=== PATIENT | male | born 1995 | race Caucasian/White ===

== ENCOUNTER 2018-07-05 08:02 | Inpatient (IN) | payer MEDICAID ==
[~2018-07-05] VITALS: Ht 160 cm; Wt 103.0 kg
[2018-07-05] MEDS ORDERED: MORPHINE SULFATE 4 MG/ML CPJ (NOT FOR IM USE) IV STA (08:26)
[2018-07-05] MEDS ORDERED: ONDANSETRON HCL 4MG/2ML INJ IV STA (08:26)
[2018-07-05] MEDS ORDERED: SODIUM CHLORIDE 0.9% 1,000 ML IV ONE (08:26)
[2018-07-05] MEDS ORDERED: KETOROLAC 30MG/ML VIAL IV STA (08:26)
[2018-07-05] MEDS ORDERED: METHYLPREDNISOLONE SOD SUCC 125 MG/2 ML VIAL IV STA (08:26)
[2018-07-05] MEDS ORDERED: LEVOFLOXACIN 750MG PREMIX 150 ML IV ONE (08:30)
[2018-07-05] MEDS ORDERED: IPRATROPIUM/ALBUTEROL 0.5-3(2.5)MG/3ML NEB HHN ONE (08:30)
[2018-07-05 09:31] LABS: BASOPHILS % 0.7 % (0.0-2.0); EOSINOPHILS % 3.4 % (0.0-5.0); HEMATOCRIT. 38.2 % (42.0-52.0); HEMOGLOBIN. 13.1 g/dL (14.0-18.0); LYMPHOCYTES % 22.3 % (20.0-50.0); MEAN CORPUSCULAR HEMOGLOBIN 29.8 pg (28.0-32.0); MEAN CORPUSCULAR VOLUME 86.6 fL (80.0-94.0); MEAN PLATELET VOLUME 10.2 fl (7.4-10.4); MONOCYTES % 14.3 % (2.0-8.0); NEUTROPHILS % 59.3 % (40.0-76.0); RED BLOOD CELL COUNT 4.41 mill/uL (4.7-6.1); RED CELL DISTRIBUTION WIDTH 15.7 % (11.6-14.6)
[2018-07-05 09:34] LABS: CHLORIDE 112 mEq/L (98-107)
[2018-07-05 09:38] LABS: INR 1.2; PARTIAL THROMBOPLASTIN TIME 33.1 sec (23.4-31.0); PROTHROMBIN TIME 12.4 sec (9.1-11.1)
[2018-07-05 09:45] LABS: PLATELET 39 x1000/uL (130-400)
[2018-07-05] MEDS ORDERED: LORAZEPAM 2MG/ML CPJ IV ONE (10:15)
[2018-07-05 10:30] LABS: PLATELET ESTIMATE MARKEDL
[2018-07-05 11:22] LABS: CLARITY URINE CLEAR (CLEAR); COLOR URINE DARK YELLOW (YELLOW); KETONES URINE NEGATIVE (NEGATIVE); LEUKOCYTE ESTERASE URINE NEGATIVE (NEGATIVE); NITRITE URINE NEGATIVE (NEGATIVE); OCCULT BLOOD URINE NEGATIVE (NEGATIVE); PH URINE 5.5 (4.5-8.0); PROTEIN URINE NEGATIVE (NEGATIVE); SPECIFIC GRAVITY URINE 1.024 (1.005-1.030)
[2018-07-05] MEDS ORDERED: DESM10SP4 BOTHNSTRLS (12:20)
[2018-07-05] MEDS ORDERED: LEVO50TA8 PO (12:20)
[2018-07-05 12:25] VITALS: BP 96/61
[2018-07-05] MEDS ORDERED: MAGNESIUM/ALUMINUM HYDROXIDE/SIMETHICONE 30ML UDC PO PRN (12:30)
[2018-07-05] MEDS ORDERED: DOCUSATE SODIUM 100MG CAPSULE PO PRN (12:30)
[2018-07-05] MEDS ORDERED: CLONIDINE 0.1MG TABLET PO PRN (12:30)
[2018-07-05] MEDS ORDERED: ONDANSETRON HCL 4MG/2ML INJ IV PRN (12:30)
[2018-07-05] MEDS ORDERED: GUAIFENESIN 200MG/10ML SUGAR FREE UDC PO PRN (12:30)
[2018-07-05] MEDS ORDERED: ACETAMINOPHEN 325MG TABLET PO PRN (12:30)
[2018-07-05] MEDS ORDERED: IPRATROPIUM/ALBUTEROL 0.5-3(2.5)MG/3ML NEB INH PRN (12:30)
[2018-07-05] MEDS ORDERED: ENOXAPARIN 40MG/0.4ML SYR SUBCUT SCH (12:30)
[2018-07-05] MEDS ORDERED: ZOLPIDEM TARTRATE 5MG TABLET PO PRN (12:30)
[2018-07-05] MEDS ORDERED: NITROGLYCERIN 0.4MG TABLET SL SL PRN (12:30)
[2018-07-05] MEDS ORDERED: DEXTROSE 50% WATER 50ML SYRINGE IV PRN (13:15)
[2018-07-05] MEDS: GUAIFENESIN/DM 600MG/30MG ER TAB 12HR PO SCH ×2 (13:31→22:31)
[2018-07-05] MEDS: KETOROLAC 15MG/ML VIAL IV PRN (13:31)
[2018-07-05] MEDS: METHYLPREDNISOLONE SOD SUCC 125 MG/2 ML VIAL IV SCH ×2 (13:31→22:34)
[2018-07-05] MEDS ORDERED: AZITHROMYCIN 500 MG in DEXT 5% WATER 250 ML IV SCH (14:00)
[2018-07-05] MEDS: CEFTRIAXONE 1,000 MG in DEXTROSE 5% WATER 50 ML IV SCH (14:56)
[2018-07-05] MEDS: INSULIN LISPRO 100 UNITS/ML SUBCUT SCH ×2 (17:26→22:33)
[2018-07-05] MEDS: BLOOD SUGAR DIAGNOSTIC STRIP TEST SCH ×2 (17:26→21:00)
[2018-07-05 17:45] LABS: CREATINE KINASE 76 IU/L (39-308)
[2018-07-05 17:46] LABS: CREATINE KINASE MB FRACTION < 1.0 ng/mL (0.5-3.6)
[2018-07-05 20:00] VITALS: BP 110/60
[2018-07-05] MEDS: IPRATROPIUM/ALBUTEROL 0.5-3(2.5)MG/3ML NEB HHN SCH (20:59)
[2018-07-05] MEDS: FAMOTIDINE 20MG TABLET PO SCH (22:31)
[2018-07-05] MEDS: DESMOPRESSIN TOP SCH (23:04)
[2018-07-05 23:18] LABS: PHENCYCLIDINE URINE SCREEN NEGATIVE (NEGATIVE)
[2018-07-05 23:19] LABS: *AMPHETAMINES SCREEN URINE NEGATIVE (NEGATIVE); *BARBITURATES SCREEN URINE NEGATIVE (NEGATIVE); *BENZODIAZEPINES SCREEN URINE NEGATIVE (NEGATIVE); *COCAINE SCREEN URINE NEGATIVE (NEGATIVE); CANNABINOID URINE SCREEN NEGATIVE (NEGATIVE); METHADONE URINE SCREEN NEGATIVE (NEGATIVE); OPIATES URINE SCREEN PRESUMTIVE POSITIVE (NEGATIVE)
[2018-07-06] VITALS: BP 99/52
[2018-07-06 00:35] LABS: CREATINE KINASE 71 IU/L (39-308)
[2018-07-06 00:36] LABS: CREATINE KINASE MB FRACTION < 1.0 ng/mL (0.5-3.6)
[2018-07-06] MEDS: IPRATROPIUM/ALBUTEROL 0.5-3(2.5)MG/3ML NEB HHN SCH ×4 (00:52→11:37)
[2018-07-06 04:00] VITALS: BP 99/52
[2018-07-06] MEDS ORDERED: LEVOTHYROXINE SODIUM 50MCG TABLET PO SCH (06:45)
[2018-07-06] MEDS: BLOOD SUGAR DIAGNOSTIC STRIP TEST SCH ×2 (06:45→12:24)
[2018-07-06] MEDS: METHYLPREDNISOLONE SOD SUCC 125 MG/2 ML VIAL IV SCH (06:54)
[2018-07-06] MEDS: INSULIN LISPRO 100 UNITS/ML SUBCUT SCH ×2 (06:59→12:16)
[2018-07-06 08:00] VITALS: BP 94/41
[2018-07-06] MEDS ORDERED: CEFTRIAXONE 1 G PREMIX 50 ML IV SCH (09:00)
[2018-07-06] MEDS: DESMOPRESSIN TOP SCH (09:03)
[2018-07-06] MEDS: FAMOTIDINE 20MG TABLET PO SCH (09:03)
[2018-07-06] MEDS: GUAIFENESIN/DM 600MG/30MG ER TAB 12HR PO SCH (09:03)
[2018-07-06] MEDS: KETOROLAC 15MG/ML VIAL IV PRN (09:44)
[2018-07-06 12:00] VITALS: BP 108/50
[2018-07-06] MEDS: CEFTRIAXONE 1,000 MG in DEXTROSE 5% WATER 50 ML IV SCH (12:16)
[2018-07-06 13:07] VITALS: BP 108/50
[2018-07-07] MEDS ORDERED: AZITHROMYCIN 500 MG TABLET PO SCH (09:00)
== END 2018-07-06 15:30 | disposition home or self-care (01) | DRG 133 ==
LOC: ER 08:11 → 5WST 10:16 → EDBEDREQ 10:19 → ENRESERV 10:25
PROVIDERS: ADMIT Internal Medicine; ATTEND Internal Medicine
DX: J96.00 Acute respiratory failure, unspecified whether with hypoxia or hypercapnia (principal); J18.9 Pneumonia, unspecified organism; D69.6 Thrombocytopenia, unspecified; E44.1 Mild protein-calorie malnutrition; E83.51 Hypocalcemia; Z68.41 Body mass index [BMI] 40.0-44.9, adult; E03.9 Hypothyroidism, unspecified; E11.9 Type 2 diabetes mellitus without complications; E66.9 Obesity, unspecified; E80.4 Gilbert syndrome; F41.9 Anxiety disorder, unspecified; F32.9 Major depressive disorder, single episode, unspecified; J45.909 Unspecified asthma, uncomplicated; Z85.841 Personal history of malignant neoplasm of brain
CPT/HCPCS: 36415; 71045; 80305; 82550; 82553; 82962; 83036; 83605; 83880; 84484; 85379; 93005; 93970; 94640; 99285; J0456; J0696; J1815; J1885; J1956; J2060; J2270; J2405; J2930; J7030; J7040; J7060; J7620

== ENCOUNTER 2018-11-23 20:02 | Inpatient (IN) | payer MEDICAID ==
[~2018-11-23] VITALS: Ht 160 cm; Wt 108.7 kg
[~2018-11-23 20:02] MED LIST: DESM10SP4 BOTHNSTRLS; LEVO50TA8 PO
[2018-11-23 23:01] LABS: BASOPHILS % 0.9 % (0.0-2.0); EOSINOPHILS % 4.3 % (0.0-5.0); HEMATOCRIT. 34.4 % (42.0-52.0); HEMOGLOBIN. 11.7 g/dL (14.0-18.0); LYMPHOCYTES % 33.3 % (20.0-50.0); MEAN CORPUSCULAR HEMOGLOBIN 29.4 pg (28.0-32.0); MEAN CORPUSCULAR VOLUME 86.3 fL (80.0-94.0); MONOCYTES % 8.3 % (2.0-8.0); NEUTROPHILS % 53.2 % (40.0-76.0); RED BLOOD CELL COUNT 3.99 mill/uL (4.7-6.1); RED CELL DISTRIBUTION WIDTH 14.6 % (11.6-14.6)
[2018-11-23 23:03] LABS: CHLORIDE 106 mEq/L (98-107)
[2018-11-23 23:06] LABS: PLATELET 46 x1000/uL (130-400)
[2018-11-23 23:08] LABS: ETHANOL BLOOD < 10 mg/dL
[2018-11-23 23:11] LABS: CLARITY URINE CLEAR (CLEAR); COLOR URINE YELLOW (YELLOW); KETONES URINE NEGATIVE (NEGATIVE); LEUKOCYTE ESTERASE URINE NEGATIVE (NEGATIVE); NITRITE URINE NEGATIVE (NEGATIVE); OCCULT BLOOD URINE NEGATIVE (NEGATIVE); PH URINE 5.5 (4.5-8.0); PROTEIN URINE TRACE (NEGATIVE)
[2018-11-23 23:22] LABS: *AMPHETAMINES SCREEN URINE NEGATIVE (NEGATIVE)
[2018-11-23 23:23] LABS: *BARBITURATES SCREEN URINE NEGATIVE (NEGATIVE); *BENZODIAZEPINES SCREEN URINE NEGATIVE (NEGATIVE); *COCAINE SCREEN URINE NEGATIVE (NEGATIVE); METHADONE URINE SCREEN NEGATIVE (NEGATIVE); OPIATES URINE SCREEN NEGATIVE (NEGATIVE); PHENCYCLIDINE URINE SCREEN NEGATIVE (NEGATIVE)
[2018-11-23 23:24] LABS: CANNABINOID URINE SCREEN NEGATIVE (NEGATIVE)
[2018-11-24 06:00] VITALS: BP 104/62
[2018-11-24 08:00] VITALS: BP 93/58
[2018-11-24] MEDS ORDERED: CLONIDINE 0.1MG TABLET PO PRN (09:30)
[2018-11-24] MEDS ORDERED: LORAZEPAM 2MG/ML CPJ IV PRN (09:30)
[2018-11-24] MEDS ORDERED: ACETAMINOPHEN 325MG TABLET PO PRN (09:30)
[2018-11-24] MEDS ORDERED: DOCUSATE SODIUM 100MG CAPSULE PO PRN (09:30)
[2018-11-24] MEDS ORDERED: ONDANSETRON HCL 4MG/2ML INJ IV PRN (09:30)
[2018-11-24] MEDS ORDERED: NITROGLYCERIN 0.4MG TABLET SL SL PRN (09:30)
[2018-11-24] MEDS ORDERED: MAGNESIUM/ALUMINUM HYDROXIDE/SIMETHICONE 30ML UDC PO PRN (09:30)
[2018-11-24] MEDS ORDERED: IPRATROPIUM/ALBUTEROL 0.5-3(2.5)MG/3ML NEB INH PRN (09:30)
[2018-11-24] MEDS ORDERED: GUAIFENESIN 200MG/10ML SUGAR FREE UDC PO PRN (09:30)
[2018-11-24] MEDS ORDERED: LEVETIRACETAM 500MG TABLET PO SCH (10:00)
[2018-11-24] MEDS ORDERED: LEVOTHYROXINE SODIUM 50MCG TABLET PO SCH (10:00)
[2018-11-24] MEDS ORDERED: GADOBENATE DIMEGLUMINE 529 MG/ML 10ML IV ONE (10:41)
[2018-11-24 12:00] VITALS: BP 100/57
[2018-11-24] MEDS ORDERED: DESMOPRESSIN ACETATE 0.1MG TABLET PO SCH ×2 (14:00→21:00)
[2018-11-24 14:18] LABS: T4 FREE 0.22 ng/dL (0.76-1.46)
[2018-11-24] MEDS ORDERED: HYDR5TAB8 PO (14:18)
[2018-11-24] MEDS ORDERED: HYDR5TAB8 * (14:18)
[2018-11-24] MEDS ORDERED: TEST75GE TD (14:18)
[2018-11-24 16:00] VITALS: BP 94/64
[2018-11-24] MEDS: KETOROLAC 15MG/ML VIAL IV PRN (18:01)
[2018-11-24 20:00] VITALS: BP 101/55
[2018-11-24] MEDS ORDERED: ZOLPIDEM TARTRATE 5MG TABLET PO PRN (21:00)
[2018-11-24] MEDS ORDERED: HYDROCORTISONE 10MG TABLET PO SCH (21:00)
[2018-11-24] MEDS: DESMOPRESSIN ACETATE XX SCH (21:18)
[2018-11-25] VITALS: BP 101/63
[2018-11-25 04:00] VITALS: BP 90/49
[2018-11-25] MEDS ORDERED: LEVOTHYROXINE SODIUM 100MCG TABLET PO SCH (06:45)
[2018-11-25 08:00] VITALS: BP 101/45
[2018-11-25] MEDS ORDERED: HYDROCORTISONE 10MG TABLET PO SCH (09:00)
[2018-11-25] MEDS: DESMOPRESSIN ACETATE XX SCH (09:18)
[2018-11-25] MEDS: KETOROLAC 15MG/ML VIAL IV PRN (10:00)
[2018-11-25 11:49] VITALS: BP 88/43
[2018-11-25 13:32] VITALS: BP 88/43
== END 2018-11-25 14:45 | disposition home or self-care (01) | DRG 861 ==
LOC: ER 20:02 → 5WST 11-24 03:27 → ENRESERV 11-24 05:11
PROVIDERS: ADMIT Internal Medicine; ATTEND Internal Medicine
DX: R53.1 Weakness (principal); D69.6 Thrombocytopenia, unspecified; E44.1 Mild protein-calorie malnutrition; E83.51 Hypocalcemia; Z68.41 Body mass index [BMI] 40.0-44.9, adult; E03.9 Hypothyroidism, unspecified; E11.9 Type 2 diabetes mellitus without complications; F32.9 Major depressive disorder, single episode, unspecified; Z85.841 Personal history of malignant neoplasm of brain; Z79.899 Other long term (current) drug therapy
CPT/HCPCS: 36415; 70553; 80061; 80305; 80320; 83036; 84439; 84443; 84484; 93005; 93922; 93970; 99285; A9577; J1885; G0480